=== PATIENT | male | born 1970 | race Caucasian/White ===

== ENCOUNTER 2017-05-14 10:08 | Outpatient (CLI) | payer OTHER ==
[2017-05-14 14:30] LABS: BASOPHILS # (AUTO) 0.1 10^3/uL (0.0-0.1); BASOPHILS % (AUTO) 0.9 %; EOSINOPHILS # (AUTO) 0.3 10^3/uL (0.0-0.7); HCT - HEMATOCRIT 44.1 % (42.0-52.0); HGB - HEMOGLOBIN 15.1 g/dL (14.0-18.0); LYMPHOCYTES # (AUTO) 1.6 10^3/uL (1.5-3.5); LYMPHOCYTES % (AUTO) 28.8 %; MEAN CORPUSCULAR HEMOGLOBIN 30.5 pg (27.0-31.0); MEAN CORPUSCULAR HGB CONC 34.2 g/dL (32.0-36.0); MONOCYTES # (AUTO) 0.5 10^3/uL (0.0-1.0); MONOCYTES % (AUTO) 8.3 %; NEUTROPHILS # (AUTO) 3.2 10^3/uL (1.5-6.6); RED BLOOD COUNT 4.96 10^6/uL (4.70-6.10); RED CELL DISTRIBUTION WIDTH 13.6 % (12.0-15.0); UNCORRECTED WHITE BLOOD COUNT 5.7 x10^3/uL; WHITE BLOOD COUNT 5.7 x10^3/uL (4.8-10.8)
[2017-05-14 15:10] LABS: ALBUMIN/GLOBULIN RATIO 1.5 (1.0-2.2); BILIRUBIN,TOTAL 0.3 mg/dL (0.2-1.0); BUN - BLOOD UREA NITROGEN 15 mg/dL (6-20); CALCIUM 9.4 mg/dL (8.5-10.3); CARBON DIOXIDE - CO2 26 mmol/L (21-32); CHLORIDE 107 mmol/L (101-111); CHOL/HDL RATIO 5.7 (<5.0); CHOLESTEROL 200 mg/dL; CREATININE 0.9 mg/dL (0.6-1.2); GFR - MDRD 90 (>89); GLUCOSE 102 mg/dL (70-100); HDL CHOLESTEROL 35 mg/dL; LDL/HDL RATIO 3.6 (<3.6); POTASSIUM 4.1 mmol/L (3.5-5.0); SODIUM 140 mmol/L (135-145); TOTAL PROTEIN 6.8 g/dL (6.7-8.2); TRIGLYCERIDES 196 mg/dL; VLDL CHOLESTEROL 39 mg/dL
== END 2017-05-14 10:09 | disposition home or self-care (01) ==
LOC: LAB.N 10:08
PROVIDERS: ATTEND Nurse Practitioner Gerontology
DX: Z13.9 Encounter for screening, unspecified (principal)
CPT/HCPCS: 36415; 80053; 80061; 85025

== ENCOUNTER 2017-06-07 20:14 | Emergency (ER) | payer OTHER ==
[2017-06-07] MEDS ORDERED: ALBUTEROL NEB 2.5 MG/3 ML INH STA (21:19)
[2017-06-07] MEDS ORDERED: predniSONE 20 MG TABLET PO STA (21:20)
[2017-06-07] MEDS ORDERED: predniSONE 20 MG TABLET ONE (21:24)
--- NOTE | 2017-06-07 21:27 | ED Physician Documentation ---
PD HPI CHEST PAIN - Stated complaint Stated Complaint: SOA/COUGH - Chief complaint Chief Complaint: Resp - History obtained from History obtained from: Patient - Additional information Additional information: Patient is a 47-year-old male who is otherwise healthy. He does have a history of asthma as a child. He is a smoker and does have a daughter who also has asthma. He presents with a complaint of difficulty in breathing for 1 day. He has had a dry nonproductive cough and wheezing. He presents tonight with these complaints and has had difficulty sleeping because of the dry cough and shortness of breath. He does not have any chest pain or chest pressure there is no edema in lower extremities. He does not have any history of venous thromboembolism. Review of systems: For pertinent positive and negatives in the review of systems please see history of present illness. Otherwise all other systems have been reviewed and are negative. Dragon disclaimer: Parts of this medical record were created using voice recognition technology. Because of the inherent limitations of this system occasional same sounding word substitutions do occur and persist despite proofreading. Please read the document for context. Review of Systems Ten Systems: 10 systems reviewed and negative Constitutional: denies: Fever Cardiac: denies: Chest pain / pressure, Palpitations, Pedal edema, Calf pain Respiratory: reports: Dyspnea, Cough, Wheezing GI: denies: Abdominal Pain, Abdominal Swelling, Nausea, Vomiting PD PAST MEDICAL HISTORY - Past Medical History Past Medical History: Yes Respiratory: Sleep apnea - Past Surgical History Past Surgical History: Yes General: Other - Present Medications Home Medications: Ambulatory Orders Medication Instructions Recorded Confirmed Cetirizine [ZyrTEC] 10 mg PO DAILY 06/07/17 06/07/17 Prednisone 40 mg PO DAILY #8 tablet 06/07/17 - Allergies Allergies/Adverse Reactions: Allergies Allergy/AdvReac Type Severity Reaction Status Date / Time No Known Drug Allergies Allergy Verified 06/07/17 20:32 - Social History Does the pt smoke?: Yes Smoking Status: Current every day smoker Does the pt drink ETOH?: No Does the pt have substance abuse?: No PD ED PE NORMAL - General General: Alert and oriented X 3, No acute distress, Well developed/nourished - HEENT HEENT: Atraumatic, PERRL - Cardiac Cardiac: RRR, No murmur, No gallop - Respiratory Respiratory: Other (No respiratory distress but moderate wheezing, prolonged expiratory phase) - Abdomen Abdomen: Normal bowel sounds - Derm Derm: Normal color, Warm and dry - Extremities Extremities: No deformity, No tenderness to palpate - Psych Psych: Normal mood, Normal affect Results - Vitals Vitals: Vital Signs - 24 hr 06/07/17 06/07/17 06/07/17 20:18 20:49 21:35 Temperature 36.3 C L Heart Rate 79 88 88 Respiratory 16 18 18 Rate Blood Pressure 131/77 H 130/90 H O2 Saturation 95 95 Oxygen O2 Source Room air PD MEDICAL DECISION MAKING - ED course ED course: This patinet is a pleasant well-appearing 47-year-old male who does have a history of asthma as a child and currently smokes. He comes in a cold symptoms and is found to have moderate wheezing here. Is given albuterol neb here and currently looks and feels better he is also given oral prednisone there is no fever or productive cough and antibiotics are not recommended for what appears to be asthmatic bronchitis. Disposition: To home Clinical impression: 1. Acute asthmatic bronchitis Departure - Departure Disposition: 01 Home, Self Care Clinical Impression: Bronchospasm with bronchitis, acute Condition: Good Instructions: ED Bronchitis Asthmatic Follow-Up: iVta Archer ARNP [Primary Care Provider] - Prescriptions: Prednisone 40 mg PO DAILY #8 tablet
[2017-06-07] MEDS ORDERED: ALBUTEROL NEB 2.5 MG/3 ML INH ONE (21:34)
[2017-06-07 22:53] VITALS: BP 128/91
== END 2017-06-07 22:51 | disposition home or self-care (01) ==
LOC: ED 20:14
DX: J20.9 Acute bronchitis, unspecified (principal); G47.30 Sleep apnea, unspecified; F17.200 Nicotine dependence, unspecified, uncomplicated
CPT/HCPCS: 94640; 99283; J7512; J7613

== ENCOUNTER 2018-01-30 13:00 | Outpatient (CLI) | payer OTHER | END 2018-01-30 13:15 | disposition home or self-care (01) | LOC: RT.N 13:00 | PROVIDERS: ATTEND Nurse Practitioner | DX: R06.02 Shortness of breath (principal) | CPT/HCPCS: 93005 ==

== ENCOUNTER 2018-01-30 14:18 | Outpatient (CLI) | payer OTHER ==
--- NOTE | 2018-01-31 08:52 | XRAY Report ---
TWO VIEW CHEST X-RAY: 01/30/2018 CLINICAL INDICATION: Shortness of breath. FINDINGS: Frontal and lateral views of the chest demonstrate a normal cardiac silhouette. The lungs are clear. No effusion or pneumothorax is present. IMPRESSION: NORMAL CHEST. TD: 01/31/2018 08:51
== END 2018-01-30 14:19 | disposition home or self-care (01) ==
LOC: DI.N 14:18
PROVIDERS: ATTEND Nurse Practitioner
DX: R07.9 Chest pain, unspecified (principal); R06.02 Shortness of breath
CPT/HCPCS: 36415; 71046; 80053; 83880; 85025; 85379; 85651; 86140

== ENCOUNTER 2018-01-30 20:17 | Outpatient (CLI) | payer OTHER ==
[2018-01-30 19:01] LABS: BASOPHILS # (AUTO) 0.1 10^3/uL (0.0-0.1); EOSINOPHILS # (AUTO) 0.5 10^3/uL (0.0-0.7); EOSINOPHILS % (AUTO) 8.9 %; HGB - HEMOGLOBIN 15.8 g/dL (14.0-18.0); LYMPHOCYTES # (AUTO) 2.2 10^3/uL (1.5-3.5); MEAN CORPUSCULAR HEMOGLOBIN 29.4 pg (27.0-31.0); MEAN CORPUSCULAR VOLUME 89.1 fL (80.0-94.0); MEAN PLATELET VOLUME 7.7 fL (7.4-11.4); MONOCYTES # (AUTO) 0.5 10^3/uL (0.0-1.0); MONOCYTES % (AUTO) 7.5 %; NEUTROPHILS # (AUTO) 2.9 10^3/uL (1.5-6.6); NEUTROPHILS % (AUTO) 46.6 %; PLT - PLATELET COUNT 276 10^3/uL (130-450); RED BLOOD COUNT 5.38 10^6/uL (4.70-6.10); RED CELL DISTRIBUTION WIDTH 13.7 % (12.0-15.0); WHITE BLOOD COUNT 6.2 x10^3/uL (4.8-10.8)
[2018-01-30 19:05] LABS: ALBUMIN 4.8 g/dL (3.2-5.5); ALKALINE PHOSPHATASE 52 IU/L (42-121); ALT ALANINE AMINOTRANSFERASE 22 IU/L (10-60); AST ASPARTATE AMINOTRANSFERASE 20 IU/L (10-42); BILIRUBIN,TOTAL 0.3 mg/dL (0.2-1.0); BUN - BLOOD UREA NITROGEN 17 mg/dL (6-20); CALCIUM 9.6 mg/dL (8.5-10.3); CARBON DIOXIDE - CO2 26 mmol/L (21-32); CHLORIDE 105 mmol/L (101-111); CRP - C-REACTIVE PROTEIN < 1.0 mg/dL (0-1.0); GFR - MDRD 79 (>89); GLUCOSE 98 mg/dL (70-100); SODIUM 139 mmol/L (135-145); TOTAL PROTEIN 7.2 g/dL (6.7-8.2)
== END 2018-01-30 20:18 | disposition home or self-care (01) ==
LOC: LAB.N 20:17
PROVIDERS: ATTEND Nurse Practitioner
DX: R07.9 Chest pain, unspecified (principal); R06.02 Shortness of breath
CPT/HCPCS: 36415; 80053; 83880; 85025; 85379; 85651; 86140

== ENCOUNTER 2018-03-13 13:10 | Outpatient (CLI) | payer OTHER ==
[2018-03-13] MEDS ORDERED: ALBUTEROL NEB 2.5 MG/3 ML INH ONE ×2 (15:26)
== END 2018-03-13 13:11 | disposition home or self-care (01) ==
LOC: RT 13:10
PROVIDERS: ATTEND Nurse Practitioner Gerontology
DX: R05 Cough (principal); R06.02 Shortness of breath
CPT/HCPCS: 94060; 94664; 94729

== ENCOUNTER 2018-06-03 14:44 | Outpatient (CLI) | payer OTHER | END 2018-06-03 14:45 | disposition home or self-care (01) | LOC: SC 14:44 | PROVIDERS: ATTEND Internal Medicine Pulmonary Disease | DX: G47.33 Obstructive sleep apnea (adult) (pediatric) (principal); E66.9 Obesity, unspecified; Z68.31 Body mass index [BMI] 31.0-31.9, adult | CPT/HCPCS: 99203; 99212 ==

== ENCOUNTER 2018-07-12 19:33 | Outpatient (CLI) | payer OTHER | END 2018-07-12 19:34 | disposition home or self-care (01) | LOC: SC 19:33 | PROVIDERS: ATTEND Internal Medicine Pulmonary Disease | DX: G47.33 Obstructive sleep apnea (adult) (pediatric) (principal); G47.61 Periodic limb movement disorder | CPT/HCPCS: 95810 ==

== ENCOUNTER 2018-08-01 15:14 | Outpatient (CLI) | payer OTHER | END 2018-08-01 15:15 | disposition home or self-care (01) | LOC: SC 15:14 | PROVIDERS: ATTEND Internal Medicine Pulmonary Disease | DX: G47.33 Obstructive sleep apnea (adult) (pediatric) (principal) | CPT/HCPCS: 99212; 99213 ==

== ENCOUNTER 2018-09-07 20:41 | Outpatient (CLI) | payer OTHER | END 2018-09-07 20:42 | disposition home or self-care (01) | LOC: SC 20:41 | PROVIDERS: ATTEND Internal Medicine Pulmonary Disease | DX: G47.33 Obstructive sleep apnea (adult) (pediatric) (principal); G47.61 Periodic limb movement disorder; R09.02 Hypoxemia | CPT/HCPCS: 95811 ==

== ENCOUNTER 2018-10-09 14:41 | Outpatient (CLI) | payer OTHER | END 2018-10-09 14:42 | disposition home or self-care (01) | LOC: SC 14:41 | PROVIDERS: ATTEND Nurse Practitioner Family | DX: G47.33 Obstructive sleep apnea (adult) (pediatric) (principal); R09.02 Hypoxemia | CPT/HCPCS: 99212; 99214 ==

== ENCOUNTER 2018-11-11 15:49 | Outpatient (CLI) | payer OTHER | END 2018-11-11 15:50 | disposition home or self-care (01) | LOC: SC 15:49 | PROVIDERS: ATTEND Nurse Practitioner Family | DX: G47.33 Obstructive sleep apnea (adult) (pediatric) (principal); R09.02 Hypoxemia | CPT/HCPCS: 99212; 99215 ==

== ENCOUNTER 2019-04-22 11:28 | Outpatient (CLI) | payer OTHER ==
--- NOTE | 2019-04-22 15:08 | XRAY Report ---
Reason: ASTHMA Procedure Date: 04/22/2019 Accession Number: [id number] / [id number] Procedure: XRN - Chest 2 View X-Ray CPT Code: 32704 FULL RESULT: EXAM: CHEST RADIOGRAPHY VIEWS EXAM DATE: 04/22/2019. CLINICAL HISTORY: Asthma. Chronic cough. COMPARISON: PA and lateral chest on 01/30/2018. TECHNIQUE: PA and lateral views. FINDINGS: Lungs/Pleura: Normal vasculature. Ill-defined 9 x 6 mm opacity projected between the anterior left second and third ribs, not visible on the prior examination. The lungs are otherwise clear. No pleural fluid or pneumothorax. Mediastinum: Mild cardiac and mediastinal contours. Lungs: Normal. IMPRESSION: Ill-defined 9 x 6 mm nodular opacity of the left upper chest is not visible on the prior examination. This may be a small focus of atelectasis or inflammation, or could be a new pulmonary nodule. Recommend follow-up chest radiography in 2-3 weeks for reevaluation. Otherwise normal examination. RADIA
== END 2019-04-22 11:29 | disposition home or self-care (01) ==
LOC: DI.N 11:28
PROVIDERS: ATTEND Physician Assistant Medical
DX: R91.8 Other nonspecific abnormal finding of lung field (principal)
CPT/HCPCS: 71046

== ENCOUNTER 2019-05-12 15:35 | Outpatient (CLI) | payer OTHER ==
--- NOTE | 2019-05-12 18:51 | XRAY Report ---
Reason: productive cough;abnormal CXR Procedure Date: 05/12/2019 Accession Number: [id number] / [id number] Procedure: XRN - Chest 2 View X-Ray CPT Code: 17480 FULL RESULT: EXAM: CHEST RADIOGRAPHY EXAM DATE: 05/12/2019 03:49 PM. CLINICAL HISTORY: Productive cough; abnormal CXR. COMPARISON: CHEST 2 VIEW 04/22/2019 12:04 PM. TECHNIQUE: 2 views. FINDINGS: Lungs/Pleura: Lung volumes are within normal limits although slightly decreased from before. There is minimal right basilar bronchovascular crowding. There is no confluent consolidation. There are no distinct nodules. The subtle opacity noted previously between the anterior left second and third rib now appears curvilinear and suggesting normal bronchovascular markings and overlying rib shadows. Mediastinum: Heart and mediastinal contours are unremarkable. Other: None. IMPRESSION: Normal 2-view chest radiography. No convincing left upper lobe nodule. RADIA
== END 2019-05-12 15:36 | disposition home or self-care (01) ==
LOC: DI.N 15:35
PROVIDERS: ATTEND Nurse Practitioner Gerontology
DX: R91.8 Other nonspecific abnormal finding of lung field (principal); R05 Cough; J45.901 Unspecified asthma with (acute) exacerbation
CPT/HCPCS: 71046

== ENCOUNTER 2020-02-09 17:47 | Outpatient (CLI) | payer OTHER | END 2020-02-09 17:48 | disposition home or self-care (01) | LOC: COV 17:47 | PROVIDERS: ATTEND Family Medicine | DX: R05 Cough (principal); R50.9 Fever, unspecified | CPT/HCPCS: 81599 ==

== ENCOUNTER 2020-02-13 19:28 | Outpatient (CLI) | payer OTHER | END 2020-02-13 19:29 | disposition critical access hospital (66) | LOC: EMS 19:28 | PROVIDERS: ATTEND Surgery | DX: R06.02 Shortness of breath (principal); R50.9 Fever, unspecified | CPT/HCPCS: A0425; A0427 ==

== ENCOUNTER 2020-02-13 19:43 | Inpatient (IN) | payer OTHER ==
--- NOTE | 2020-02-13 20:04 | ED Physician Documentation ---
History of Present Illness - Stated complaint Stated Complaint: SOA, FEVER X 5 DAYS - Chief complaint Chief Complaint: Resp - History obtained from History obtained from: Patient (the patient is a 49 y/o former smoker with a history of reactive airway disease with a 1 week history of fever and cough. called 911 tonight for dyspnea, was given albuterol and IV solumedrol prior to arrival. he was tested for covid [place] the [facility] [place] [facility] earlier this week but the results are not available. 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.) Review of Systems Constitutional: reports: Fever Eyes: reports: Reviewed and negative Ears: reports: Reviewed and negative Nose: reports: Reviewed and negative Throat: reports: Reviewed and negative Cardiac: reports: Reviewed and negative Respiratory: reports: Dyspnea, Cough, Wheezing GI: reports: Reviewed and negative : reports: Reviewed and negative Skin: reports: Reviewed and negative Musculoskeletal: reports: Reviewed and negative Neurologic: reports: Reviewed and negative Psychiatric: reports: Reviewed and negative Endocrine: reports: Reviewed and negative Immunocompromised: reports: Reviewed and negative PD PAST MEDICAL HISTORY - Past Medical History Respiratory: Sleep apnea - Past Surgical History Past Surgical History: Yes General: Other - Present Medications Home Medications: Ambulatory Orders Medication Instructions Recorded Confirmed Cetirizine [ZyrTEC] 10 mg PO DAILY 06/07/17 06/07/17 predniSONE [Prednisone] 40 mg PO DAILY #8 tablet 06/07/17 - Allergies Allergies/Adverse Reactions: Allergies Allergy/AdvReac Type Severity Reaction Status Date / Time No Known Drug Allergies Allergy Verified 02/13/20 19:57 - Social History Does the pt smoke?: Yes Smoking Status: Current every day smoker Does the pt drink ETOH?: No Does the pt have substance abuse?: No PD ED PE NORMAL - Vitals Vital signs reviewed: Yes - General General: Alert and oriented X 3, Well developed/nourished, Other (in mild resp distress) - HEENT HEENT: Atraumatic, PERRL, Moist mucous membranes, Pharynx benign, Dentition b enign, Other - Neck Neck: Supple, no meningeal sign, No JVD, No bruit, Other (trachea midline) - Cardiac Cardiac: No murmur, Other (tachycardic and regular rhythm) - Respiratory Respiratory: Other (moderate respiratory distress, diffuse wheezing throughout all lung rossi, use of accessory muscle use throughout to include infraclavicular, supraclavicular, intercostal retractions, sob, can speak a few words and then tires out. sounds present in b/l lung rossi.) - Abdomen Abdomen: Normal bowel sounds, Soft, Non tender, Non distended, No organomegaly - Back Back: No CVA TTP, No spinal TTP - Derm Derm: Normal color, Warm and dry, No rash - Extremities Extremities: No deformity, No tenderness to palpate, Normal ROM s pain, No calf tenderness / cord - Neuro Neuro: Alert and oriented X 3, striker out 2-12 intact, No motor deficit, No sensory deficit, Normal speech - Psych Psych: Normal mood, Normal affect Results - Vitals Vitals: Vital Signs - 24 hr 02/13/20 02/13/20 02/13/20 19:54 19:57 20:08 Temperature 37.5 C Heart Rate 130 H 129 H 128 H Respiratory 20 26 H 18 Rate Blood Pressure 141/90 H 127/79 127/79 O2 Saturation 87 L 92 93 02/13/20 20:54 Temperature Heart Rate 109 H Respiratory 16 Rate Blood Pressure 102/66 O2 Saturation 96 Oxygen O2 Source Nasal cannula Oxygen Flow Rate 6 - EKG (time done) 20:13 Rate: Other (no stemi, sinus tach) - Labs Labs: Laboratory Tests 02/13/20 02/13/20 02/13/20 20:11 20:22 20:22 WBC 10.9 H RBC 4.95 Hgb 14.9 Hct 44.6 MCV 90.1 MCH 30.1 MCHC 33.4 RDW 13.2 Plt Count 258 MPV 8.7 Neut # (Auto) 8.7 H Lymph # (Auto) 0.8 L [place] # (Auto) 0.8 Eos # (Auto) 0.5 Baso # (Auto) 0.1 Absolute Nucleated RBC 0.00 Nucleated RBC % 0.0 PT 14.4 H INR 1.3 H APTT 27.1 Sodium Potassium Chloride Carbon Dioxide Anion Gap BUN Creatinine Estimated GFR (MDRD) Glucose Lactic Acid Calcium Magnesium Total Bilirubin AST ALT Alkaline Phosphatase Total Creatine Kinase Troponin I High Sens B-Natriuretic Peptide Total Protein Albumin Globulin Albumin/Globulin Ratio Lipase Ethyl Alcohol Influenza A (Rapid) Negative Influenza B (Rapid) Negative 02/13/20 02/13/20 02/13/20 20:22 20:22 20:22 WBC RBC Hgb Hct MCV MCH MCHC RDW Plt Count MPV Neut # (Auto) Lymph # (Auto) [place] # (Auto) Eos # (Auto) Baso # (Auto) Absolute Nucleated RBC Nucleated RBC % PT INR APTT Sodium 135 Potassium 4.1 Chloride 101 Carbon Dioxide 23 Anion Gap 11.0 BUN 15 Creatinine 1.0 Estimated GFR (MDRD) 79 L Glucose 142 H Lactic Acid Calcium 9.1 Magnesium 1.9 Total Bilirubin 0.6 AST 14 ALT 13 Alkaline Phosphatase 65 Total Creatine Kinase 99 Troponin I High Sens 64.7 H* B-Natriuretic Peptide 11 Total Protein 7.3 Albumin 3.9 Globulin 3.4 Albumin/Globulin Ratio 1.1 Lipase 26 Ethyl Alcohol < 5.0 Influenza A (Rapid) Influenza B (Rapid) 02/13/20 20:26 WBC RBC Hgb Hct MCV MCH MCHC RDW Plt Count MPV Neut # (Auto) Lymph # (Auto) [place] # (Auto) Eos # (Auto) Baso # (Auto) Absolute Nucleated RBC Nucleated RBC % PT INR APTT Sodium Potassium Chloride Carbon Dioxide Anion Gap BUN Creatinine Estimated GFR (MDRD) Glucose Lactic Acid 1.0 Calcium Magnesium Total Bilirubin AST ALT Alkaline Phosphatase Total Creatine Kinase Troponin I High Sens B-Natriuretic Peptide Total Protein Albumin Globulin Albumin/Globulin Ratio Lipase Ethyl Alcohol Influenza A (Rapid) Influenza B (Rapid) PD MEDICAL DECISION MAKING - ED course Complexity details: considered differential (copd exacerbation, pna, ards), other - Consults Consults: Consulted (name) (dr. little), Discussed case with (dr. little), Request systems development consultant evaluate patient, Request systems development consultant admit patient (21:28 gerber l admit patient) - Critical Care Time(min): 30 Time Includes: Direct patient care, Review records, Reassess patient, Document care, Coordinate care, Medical consult Data interpretation: Labs, Pulse ox, CXR Procedures included in critical care time: Peripheral IV Procedures excluded from critical care time: EKG Departure - Departure Disposition: 66 [facility] DC/Xfer Clinical Impression: COPD exacerbation Condition: Stable
[2020-02-13] MEDS ORDERED: cefTRIAXone 1 GM in SODIUM CHLORIDE 0.9% MINIBAG 100 ML IV STA (20:07)
[2020-02-13] MEDS ORDERED: IPRATROPIUM/ALBUTEROL 3 ML NEB INH STA ×3 (20:07→20:45)
[2020-02-13] MEDS ORDERED: SODIUM CHLORIDE 0.9% 1,000 ML IV ONE (20:07)
[2020-02-13] MEDS ORDERED: MAGNESIUM SULFATE 2 GRAM 2 GM/50 ML BAG IV ONE (20:08)
[2020-02-13] MEDS ORDERED: AZITHROMYCIN INJ 500 MG in SODIUM CHLORIDE 0.9% 250 ML IV STA (20:09)
[2020-02-13 20:32] LABS: BASOPHILS # (AUTO) 0.1 10^3/uL (0.0-0.1); BASOPHILS % (AUTO) 0.6 %; EOSINOPHILS # (AUTO) 0.5 10^3/uL (0.0-0.7); EOSINOPHILS % (AUTO) 4.8 %; HGB - HEMOGLOBIN 14.9 g/dL (14.0-18.0); LYMPHOCYTES # (AUTO) 0.8 10^3/uL (1.5-3.5); LYMPHOCYTES % (AUTO) 7.1 %; MEAN CORPUSCULAR HEMOGLOBIN 30.1 pg (27.0-31.0); MEAN CORPUSCULAR HGB CONC 33.4 g/dL (32.0-36.0); MEAN CORPUSCULAR VOLUME 90.1 fL (80.0-94.0); MEAN PLATELET VOLUME 8.7 fL (7.4-11.4); MONOCYTES # (AUTO) 0.8 10^3/uL (0.0-1.0); NEUTROPHILS # (AUTO) 8.7 10^3/uL (1.5-6.6); PLT - PLATELET COUNT 258 10^3/uL (130-450); RED BLOOD COUNT 4.95 10^6/uL (4.70-6.10); RED CELL DISTRIBUTION WIDTH 13.2 % (12.0-15.0); WHITE BLOOD COUNT 10.9 x10^3/uL (4.8-10.8)
[2020-02-13 20:38] LABS: INR 1.3 (0.8-1.2); PT - PROTHROMBIN TIME 14.4 secs (9.9-12.6)
[2020-02-13 20:45] LABS: ALBUMIN 3.9 g/dL (3.2-5.5); ALBUMIN/GLOBULIN RATIO 1.1 (1.0-2.2); ALKALINE PHOSPHATASE 65 IU/L (42-121); ALT ALANINE AMINOTRANSFERASE 13 IU/L (10-60); AST ASPARTATE AMINOTRANSFERASE 14 IU/L (10-42); BILIRUBIN,TOTAL 0.6 mg/dL (0.2-1.0); BUN - BLOOD UREA NITROGEN 15 mg/dL (6-20); CALCIUM 9.1 mg/dL (8.5-10.3); CARBON DIOXIDE - CO2 23 mmol/L (21-32); CHLORIDE 101 mmol/L (101-111); CK- CREATINE KINASE 99 IU/L (22-269); GFR - MDRD 79 (>89); GLUCOSE 142 mg/dL (70-100); LIPASE 26 U/L (22-51); MAGNESIUM 1.9 mg/dL (1.7-2.8); SODIUM 135 mmol/L (135-145); TOTAL PROTEIN 7.3 g/dL (6.7-8.2)
[2020-02-13 20:47] LABS: PARTIAL THROMBOPLASTIN TIME 27.1 secs (24.9-33.3)
--- NOTE | 2020-02-13 20:58 | XRAY Report ---
Reason: sob Procedure Date: 02/13/2020 Accession Number: [id number] / [id number] Procedure: XR - Chest 1 View X-Ray CPT Code: 71761 Final Report FULL RESULT: EXAM: CHEST RADIOGRAPHY EXAM DATE: 02/13/2020 08:35 PM. CLINICAL HISTORY: Shortness of breath. COMPARISON: CHEST 2 VIEW 05/12/2019 3:55 PM. TECHNIQUE: 1 view. FINDINGS: Lungs/Pleura: No consolidation, airspace disease, pleural effusion or pneumothorax. Mediastinum: Within exam limitations, the cardiomediastinal contour is normal. IMPRESSION: No acute cardiopulmonary disease seen. RADIA
[2020-02-13] MEDS ORDERED: SODIUM CHLORIDE FLUSH 0.9% 10 ML SYRINGE IVP PRN (21:29)
[2020-02-13] MEDS ORDERED: ONDANSETRON 4 MG/2 ML VIAL IVP PRN (21:29)
[2020-02-13] MEDS ORDERED: ALBUTEROL NEB 2.5 MG/3 ML INH PRN (21:32)
--- NOTE | 2020-02-13 21:35 | HISTORY & PHYSICAL EXAMINATION ---
Chief Complaint - Chief Complaint Chief Complaint: Shortness of breath History of Present Illness - Admitted From Admitted From:: Home - History Obtained From Records Reviewed: Yes History obtained from: Patient, ER Physician, EMR - History of Present Illness HPI Comment/Other: This is a 49-year-old male with a past medical history significant for asthma, obstructive sleep apnea on CPAP, allergic rhinitis, prior history of tobacco use who presents today complaining of shortness of breath. He states that he has been having fevers for the past 5 days and occasional shortness of breath. He states that today he noted he became severely dyspneic and he used his home albuterol without much improvement in his symptoms. He states it was relatively sudden in onset. He had some mild wheezing. He states his temperature at home has been up to 100.6 F over the past few days. He reports that he was tested for COVID-19 this past Sunday. He reports no recent travel. 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 He denies any chest pain. He reports a slight productive cough. He does have a headache, sore throat, nasal congestion and runny nose. He reports no blurry vision and denies nausea or vomiting. He also reports no abdominal pain or diarrhea. He states he has never been hospitalized before and normally feels so short of breath, he sees his primary care physician and he improves with oral steroids. He states he normally uses his albuterol inhaler at most once a week. He does take his Advair on a daily basis. He is also compliant with CPAP for his obstructive sleep apnea. He states he never officially been told he has COPD and that he was diagnosed with asthma since his younger years. He no longer smokes after quitting about 5 years ago previously he stated he was smoking a pack a day on and off since his teens. He denies any prior history of DVT or PE. Reports no leg swelling or pain. Denies a family history of thromboembolisms. He states he currently feels better after receiving IV Solu- Medrol and DuoNeb treatments in the emergency department. In the emergency department, he was found to be afebrile with temperature of 37.5 C. He was tachycardic with a heart rate of 130. Blood pressure is elevated at 141/90. He was tachypneic in the low 20s and was saturating 87% on room air. This improved to 92% on 6 L of oxygen via nasal cannula. Labs revealed a white count of 10.9 with a left shift and decreased lymphocytes. His troponin was also elevated at 64.7. His BNP was normal. Influenza was negative. His chest x-ray was unremarkable. His EKG showed sinus tachycardia without any signs of ischemia. He was given ceftriaxone IV and azithromycin IV in the emergency department. He had received 125 mg of Solumedrol IV prior to his arrival to emergency department. He also received 3 DuoNeb treatments. Given his hypoxia and persistent dyspnea, medicine was consulted for admission. History - Past Medical History Respiratory: reports: Asthma, Sleep apnea, CPAP use MRSA Hx?: No - Past Surgical History General: reports: Other (Bilaterla inguinal hernia repair) - Family & Social History Family History Comment/Other: Reports no family history to his knowledge. Living arrangement: At home Living Situation: With spouse/s.o. Social History Notes: [place] the [place] at the [employer]. He quit smoking about 5 years ago but previously smoked a pack a year on and off since his teens. He denies any alcohol use. - Substance History Use: Uses substance without health or social issues: NONE Meds/Allgy - Home Medications Home Medications: Ambulatory Orders Medication Instructions Recorded Confirmed Cetirizine [ZyrTEC] 10 mg PO DAILY 06/07/17 06/07/17 predniSONE [Prednisone] 40 mg PO DAILY #8 tablet 06/07/17 - Allergies Allergies/Adverse Reactions: Allergies Allergy/AdvReac Type Severity Reaction Status Date / Time No Known Drug Allergies Allergy Verified 02/13/20 19:57 Review of Systems - Constitutional Constitutional: reports: Fever. denies: Chills, Poor appetite - Eyes Eyes: denies: Blurred vision - Ears, Nose & Throat Ears, Nose & Throat: reports: Nasal congestion, Sore throat - Cardiovascular Cariovascular: reports: Exertional dyspnea. denies: Chest pain, Edema - Respiratory Respiratory: reports: Cough, Sputum production, Wheezing, SOB at rest, SOB with exertion - Gastrointestinal Gastrointestinal: denies: Abdominal pain, Diarrhea, Nausea, Vomiting - Genitourinary Genitourinary: denies: Dysuria, Frequency, Hematuria - Musculoskeletal Musculoskeletal: denies: Muscle pain - Integumentary Integumentary: denies: Rash - Neurological Neurological: reports: Headache. denies: General weakness, Focal weakness, Numbness - Endocrine Endocrine: denies: Polyuria, Polydypsia - All Other Systems All Other Systems: reports: Reviewed and negative Prior Level of Functionality: He is independent with his ADLs. Exam - Vital Signs Reviewed Vital Signs: Yes Vital Signs: Vital Signs x48h Temp Pulse Resp BP Pulse Ox 02/13/20 20:54 109 H 16 102/66 96 02/13/20 20:08 128 H 18 127/79 93 02/13/20 19:57 129 H 26 H 127/79 92 02/13/20 19:54 37.5 C 130 H 20 141/90 H 87 L - Physical Exam General Appearance: positive: Alert, Mild distress Eyes Bilateral: positive: Normal inspection, Conjunctivae nml ENT: positive: ENT inspection nml Neck: positive: Nml inspection Respiratory: positive: Wheezes, Other (He is tachypneic with diminished breath sounds. There are faint expiratory and expiratory wheezes.). negative: Breath sounds nml Cardiovascular: positive: No murmur, Tachycardia. negative: Bradycardia, Systolic murmur, Diastolic murmur Abdomen: positive: Non-tender, No distention. negative: Tenderness, Guarding, Rebound Skin: positive: Color nml, Warm, Dry Extremities: positive: Full ROM, No pedal edema. negative: Calf tenderness, Issac's sign/cords Neurologic/Psychiatric: positive: Oriented x3, Motor nml. negative: Disoriented to person, Disoriented to place, Disoriented to time Conclusion/Plan - Problem List (1) Acute respiratory failure with hypoxia Conclusion/Plan: He is hypoxic requiring 6 L of oxygen via nasal cannula to maintain oxygen saturation greater than 92%. Suspect secondary to his asthma exacerbation. His BNP is normal and there is no pulmonary vascular congestion on imaging to suggest heart failure. He reports improvement after receiving steroids and multiple breathing treatments. Will will need to consider a pulmonary embolism if he remains hypoxic despite treatment for his asthma exacerbation. Right now, he does not have any risk factors and no signs of DVT on exam. We will treat him for his asthma exacerbation with IV Solu-Medrol 40 mg twice daily, IV antibiotics given his history of smoking and a possible component of COPD. Александрo nebs [id number]. We will continue supplemental oxygen for goal saturation greater than 92%. Once again, if his hypoxia does not improve, we will work him up for a pulmonary embolism. He has already been tested for COVID-19 on the 07 of February and his results are pending. Right now there is no obvious infiltrate to suggest a viral pneumonia although he is lymphopenic. We will keep him on droplet precautions until we have these results back. (2) Asthma exacerbation Conclusion/Plan: Suspect this is the etiology of his acute hypoxic respiratory failure. He is hypoxic requiring 6 L of oxygen. We will treat him with similar IV 40 mg twice daily as well as ceftriaxone azithromycin IV given the may be component of COPD due to his history of smoking. Duo nebs [id number] and albuterol as needed. Qualifiers: Asthma severity: mild Asthma persistence: intermittent Qualified Code(s): J45.21 - Mild intermittent asthma with (acute) exacerbation (3) Elevated troponin Conclusion/Plan: His troponin is elevated at 64.7 but he does not have any chest pain and his EKG does not show signs of ischemia. Suspect this is likely demand ischemia given his hypoxic respiratory failure and asthma exacerbation. We will continue to monitor him on telemetry and trend his troponin. There is concern for ischemia, will give him aspirin and anticoagulate him. Unfortunately we3 do not have echocardiogram available over the weekend and if there is truly concern for a NSTEMI, he would need to be transferred. (4) ARIANE on CPAP Conclusion/Plan: He is compliant with his CPAP on a daily basis. Unfortunately, his does not drive and will be unable to bring it to him while he is hospitalized. We will place him on our own CPAP machine. - Lab Results Lab results reviewed: Yes David Bones: 02/13/20 20:22 02/13/20 20:22 - Diagnostic Imaging Results Diagnostic Imaging Results: positive: Final report reviewed, Read independently Diagnostic Imaging Results Comments: His x-rays does not reveal any obvious infiltrate. - EKG Results EKG Interpreted Independently: Yes EKG Findings: His EKG shows sinus tachycardia without any ischemic changes. Core Measures - Anticipated LOS I expect patient to be DC'd or transferred within 96 hours.: Yes - Issues Hospital Issues and Management Plan: 18-year-old male with history of asthma presenting with worsening dyspnea. He admitted for acute hypoxic respiratory failure secondary to asthma/COPD exacerbation. Will rule out COVID-19. We will treat him with IV steroids, duo nebs, antibiotics. - DVT/VTE - Prophylaxis VTE/DVT Device ordered at admit?: Yes VTE/DVT Prophylaxis med ordered at admit?: Yes
[2020-02-13 23:06] LABS: MUDS CUTOFF CONCENTRATIONS CUTOFF CONC BELOW:
[2020-02-13 23:08] LABS: BILIRUBIN,URINE NEGATIVE (NEGATIVE); CLARITY,URINE CLEAR (CLEAR); GLUCOSE, URINE (UA) NEGATIVE (NEGATIVE); KETONES,URINE (UA) 40 mg/dL (NEGATIVE); LEUKOCYTE ESTERASE, URINE NEGATIVE (NEGATIVE); NITRITE,URINE NEGATIVE (NEGATIVE); OCCULT BLOOD,URINE NEGATIVE (NEGATIVE); PH,URINE 5.5 PH (5.0-7.5); PROTEIN,URINE 30 mg/dL (NEGATIVE); UROBILINOGEN,URINE 0.2 (NORMAL) E.U./dL (NORMAL)
[2020-02-13 23:16] LABS: BACTERIA,URINE Rare /HPF (None Seen); MUCUS,URINE Few Strands; RBC,URINE None Seen /HPF (0-5); SQUAMOUS EPITHELIAL CELL,UR NONE SEEN (<= Few)
[2020-02-13 23:18] LABS: AMPHETAMINE SCREEN,URINE NEGATIVE (NEGATIVE); BENZODIAZEPINES SCREEN, URINE NEGATIVE (NEGATIVE); COCAINE SCREEN URINE NEGATIVE (NEGATIVE); METHADONE SCREEN, URINE NEGATIVE (NEGATIVE); METHAMPHETAMINES SCREEN, URINE NEGATIVE (NEGATIVE); OPIATE SCREEN, URINE NEGATIVE (NEGATIVE); OXYCODONE SCREEN, URINE NEGATIVE (NEGATIVE); PROPOXYPHENE SCREEN, URINE NEGATIVE (NEGATIVE); TRICYCLIC ANTIDEPRESSANT,URINE NEGATIVE (NEGATIVE)
[2020-02-14] MEDS: IPRATROPIUM/ALBUTEROL 3 ML NEB INH SCH ×7 (00:05→19:36)
[2020-02-14] MEDS ORDERED: IOVERSOL 320 100 ML VIAL IVP ONE ×2 (00:16→04:13)
[2020-02-14] MEDS ORDERED: ALBUTEROL NEB 2.5 MG/3 ML INH PRN (00:56)
[2020-02-14] MEDS: SODIUM CHLORIDE FLUSH 0.9% 10 ML SYRINGE IVP SCH ×4 (02:13→23:52)
--- NOTE | 2020-02-14 02:34 | CT Report ---
Reason: Hypoxia. Tachycardia. Eval for PE. Procedure Date: 02/14/2020 Accession Number: [id number] / [id number] Procedure: CT - ANGIO CHEST W/WO CPT Code: Final Report FULL RESULT: EXAM: CT ANGIOGRAM CHEST EXAM DATE: 02/14/2020 02:09 AM. CLINICAL HISTORY: Hypoxia. Tachycardia. Eval for PE. COMPARISON: None. TECHNIQUE: Routine helical imaging was performed through the chest in the pulmonary arterial phase. IV Contrast: 80 mL Optiray 320. Reconstructions: Coronal 3-D MIP reconstructions. Sagittal and coronal. In accordance with CT protocol optimization, one or more of the following dose reduction techniques were utilized for this exam: automated exposure control, adjustment of mA and/or KV based on patient size, or use of iterative reconstructive technique. FINDINGS: Pulmonary Arteries: There is suboptimal opacification of the pulmonary arteries. No main or lobar pulmonary embolism. Segmental and subsegmental vessels are difficult to assess. Lungs and Pleura: There is small patchy consolidation within the left lower lobe. Multifocal scattered areas of centrilobular nodularity seen within the lungs bilaterally coupled with patchy areas of peribronchial consolidation within the lingula and right middle lobe. There are areas of bronchial and bronchiolar wall thickening as well as areas of bronchiolar plugging. There is mild bilateral apical paraseptal emphysema. Central Airways: Visualized central airways are without suspicious filling defects. Chest Wall: No significant abnormality. Thyroid: No significant abnormality. Mediastinum: Increased number of small as well as mild enlarged mediastinal and bilateral hilar lymph nodes, presumed reactive. Small hiatal hernia is noted. Heart: Normal in size. No significant pericardial effusion. Aorta: Normal caliber. Upper Abdomen: No significant abnormality. Bones: No suspicious bony lesions evident. IMPRESSION: 1. Suboptimal opacification makes it difficult to assess segmental and subsegmental vessels. No main or lobar embolism. 2. There is small consolidation within the left lower lobe, worrisome for pneumonia. Endobronchial spread to the right middle lobe, lingula, and right lower lobe noted. Bilateral lower lung bronchial and bronchiolar wall thickening, representing a component of concurrent infectious bronchitis. RADIA
[2020-02-14] MEDS: BUDESONIDE 0.5 MG/2 ML NEB INH SCH ×2 (06:16→19:37)
[2020-02-14 06:29] LABS: BASOPHILS % (AUTO) 0.2 %; LYMPHOCYTES # (AUTO) 0.5 10^3/uL (1.5-3.5); LYMPHOCYTES % (AUTO) 5.7 %; MEAN CORPUSCULAR HEMOGLOBIN 29.7 pg (27.0-31.0); MEAN CORPUSCULAR HGB CONC 33.1 g/dL (32.0-36.0); MEAN CORPUSCULAR VOLUME 89.6 fL (80.0-94.0); MEAN PLATELET VOLUME 8.7 fL (7.4-11.4); MONOCYTES # (AUTO) 0.2 10^3/uL (0.0-1.0); MONOCYTES % (AUTO) 2.3 %; NEUTROPHILS # (AUTO) 7.9 10^3/uL (1.5-6.6); NEUTROPHILS % (AUTO) 91.2 %; PLT - PLATELET COUNT 259 10^3/uL (130-450); RED BLOOD COUNT 4.72 10^6/uL (4.70-6.10); RED CELL DISTRIBUTION WIDTH 13.5 % (12.0-15.0); WHITE BLOOD COUNT 8.7 x10^3/uL (4.8-10.8)
[2020-02-14 06:43] LABS: CALCIUM 8.9 mg/dL (8.5-10.3); CREATININE 0.8 mg/dL (0.6-1.2); MAGNESIUM 2.3 mg/dL (1.7-2.8); PHOSPHORUS 3.6 mg/dL (2.5-4.6)
[2020-02-14] MEDS: ENOXAPARIN 40 MG/0.4 ML SYRINGE SUBQ SCH (10:05)
[2020-02-14] MEDS: cefTRIAXone 1 GM in SODIUM CHLORIDE 0.9% MINIBAG 100 ML IV SCH (10:06)
[2020-02-14] MEDS: methylPREDNISolone SUCCINATE 40 MG/ML VIAL IVP SCH ×2 (10:07→21:10)
[2020-02-14] MEDS: AZITHROMYCIN 250 MG TABLET PO SCH (10:07)
[2020-02-14] MEDS: ACETAMINOPHEN 325 MG TABLET PO PRN ×3 (10:47→21:10)
[2020-02-14] MEDS: BENZONATATE 100 MG CAPSULE PO PRN ×2 (10:47→17:16)
--- NOTE | 2020-02-14 11:43 | PHARMACY PROGRESS NOTE ---
- Best Possible Medication History Admit Date and Time: 02/13/202128 Processed by: Pharmacy Medication History completed: Yes Patient Interview: Pt unable to participate Secondary Source(s): Physician records, Pharmacy records, Insurance records As the person ultimately responsible for medication therapy, providers are able to order a medication from an existing home medication list in [facility] via the "Reconcile Routine" prior to Confirmation of that medication by it support technician. Such practice is discouraged except when the physician, in their clinical judgment, deems that a medical need exists for a medication without regard to previous use.
[2020-02-14] MEDS ORDERED: guaiFENesin/CODEINE 5 ML UDC PO PRN (16:17)
--- NOTE | 2020-02-14 16:20 | PROVIDER PROGRESS NOTE ---
Subjective - Prog Note Date Prog Note Date: 02/14/20 Prog Note Time: 16:16 - Subjective Subjective: Today, pt reports possible mild improvement. Still with persistent cough and SOB. Reports cough improved with PRN Tessalon Current Medications - Current Medications Current Medications: Acetaminophen (Tylenol) 650 mg PO Q4HR PRN PRN Reason: Pain 1 to 4 Last Admin: 02/14/20 10:47 Dose: 650 mg Albuterol () 2.5 mg INH Q2HR PRN PRN Reason: Wheezing Albuterol/Ipratropium (Duoneb) 3 ml INH Q4H [facility] Last Admin: 02/14/20 14:10 Dose: 3 ml Azithromycin (Zithromax) 250 mg PO DAILY [facility] Last Admin: 02/14/20 10:07 Dose: 250 mg Benzonatate (Tessalon) 100 mg PO TID PRN PRN Reason: Cough Last Admin: 02/14/20 10:47 Dose: 100 mg Budesonide (Pulmicort) 0.5 mg INH RTBID [facility] Last Admin: 02/14/20 06:16 Dose: 0.5 mg Enoxaparin Sodium (Lovenox) 40 mg SUBQ DAILY [facility] Last Admin: 02/14/20 10:05 Dose: 40 mg Ceftriaxone Sodium 1 gm/ (Sodium Chloride) 100 mls @ 200 mls/hr IV DAILY [facility] Last Infusion: 02/14/20 10:39 Dose: Infused Methylprednisolone (Solu-Medrol (40mg Vial)) 40 mg IVP BID [facility] Last Admin: 02/14/20 10:07 Dose: 40 mg Ondansetron HCl (Zofran Inj) 4 mg IVP Q6HR PRN PRN Reason: Nausea / Vomiting Sodium Chloride (Normal Saline Flush 0.9%) 10 ml IVP PRN PRN PRN Reason: NEEDED PER PROVIDER ORDERS Sodium Chloride (Normal Saline Flush 0.9%) 10 ml IVP 0100,0900,1700 [facility] Last Admin: 02/14/20 10:07 Dose: 10 ml Objective - Vital Signs/Intake & Output Reviewed Vital Signs: Yes Vital Signs: Vital Signs x48h Temp Pulse Pulse Resp BP Pulse Ox 02/14/20 14:11 94 20 02/14/20 13:12 36.6 C 92 22 122/76 94 02/14/20 10:15 74 20 03/21/20 09:01 36.4 C L 84 20 93 02/14/20 09:00 101 H 93 Intake & Output: Intake & Output 02/11/20 02/12/20 02/13/20 02/14/20 23:59 23:59 23:59 23:59 Intake Total 1450 920 Output Total 200 Balance 1250 920 - Objective General Appearance: positive: No acute distress Eyes Bilateral: positive: No scleral icterus Neck: positive: Nml inspection Respiratory: positive: Wheezes Cardiovascular: positive: Regular rate & rhythm Abdomen: positive: Non-tender, No organomegaly, No distention Skin: positive: No rash Extremities: positive: No pedal edema Neurologic/Psychiatric: positive: Oriented x3 - Lab Results Fish Bones: 02/14/20 06:13 02/14/20 06:13 Other Labs: Lab Results x24hrs 02/14/20 02/14/20 02/14/20 Range/Units 06:13 06:13 06:13 WBC 8.7 (4.8-10.8) x10^3/uL RBC 4.72 (4.70-6.10) 10^6/uL Hgb 14.0 (14.0-18.0) g/dL Hct 42.3 (42.0-52.0) % MCV 89.6 (80.0-94.0) fL MCH 29.7 (27.0-31.0) pg MCHC 33.1 (32.0-36.0) g/dL RDW 13.5 (12.0-15.0) % Plt Count 259 (130-450) 10^3/uL MPV 8.7 (7.4-11.4) fL Neut # (Auto) 7.9 H (1.5-6.6) 10^3/uL Lymph # (Auto) 0.5 L (1.5-3.5) 10^3/uL [place] # (Auto) 0.2 (0.0-1.0) 10^3/uL Eos # (Auto) 0.0 (0.0-0.7) 10^3/uL Baso # (Auto) 0.0 (0.0-0.1) 10^3/uL Absolute Nucleated RBC 0.00 x10^3/uL Nucleated RBC % 0.0 /100WBC PT (9.9-12.6) secs INR (0.8-1.2) APTT (24.9-33.3) secs Sodium 136 (135-145) mmol/L Potassium 4.3 (3.5-5.0) mmol/L Chloride 103 (101-111) mmol/L Carbon Dioxide 23 (21-32) mmol/L Anion Gap 10.0 (6-13) BUN 15 (6-20) mg/dL Creatinine 0.8 (0.6-1.2) mg/dL Estimated GFR (MDRD) 102 (>89) Glucose 178 H (70-100) mg/dL Lactic Acid (0.5-2.2) mmol/L Calcium 8.9 (8.5-10.3) mg/dL Phosphorus 3.6 (2.5-4.6) mg/dL Magnesium 2.3 (1.7-2.8) mg/dL Total Bilirubin (0.2-1.0) mg/dL AST (10-42) IU/L ALT (10-60) IU/L Alkaline Phosphatase (42-121) IU/L Total Creatine Kinase (22-269) IU/L Troponin I High Sens 181.0 H* (2.3-19.7) ng/L B-Natriuretic Peptide (5-100) pg/mL Total Protein (6.7-8.2) g/dL Albumin (3.2-5.5) g/dL Globulin (2.1-4.2) g/dL Albumin/Globulin Ratio (1.0-2.2) Lipase (22-51) U/L Urine Color Urine Clarity (CLEAR) Urine pH (5.0-7.5) PH Ur Specific [place] (1.002-1.030) Urine Protein (NEGATIVE) mg/dL Urine Glucose (UA) (NEGATIVE) mg/dL Urine Ketones (NEGATIVE) mg/dL Urine Occult Blood (NEGATIVE) Urine Nitrite (NEGATIVE) Urine Bilirubin (NEGATIVE) Urine Urobilinogen (NORMAL) E.U./dL Ur Leukocyte Esterase (NEGATIVE) Urine RBC (0-5) /HPF Urine WBC (0-3) /HPF Ur Squamous Epith Cells (<= Few) Urine Bacteria (None Seen) /HPF Urine Mucus Ur Microscopic Review Urine Culture Comments Urine Opiates Screen (NEGATIVE) Ur Oxycodone Screen (NEGATIVE) Urine Methadone Screen (NEGATIVE) Ur Propoxyphene Screen (NEGATIVE) Ur Barbiturates Screen (NEGATIVE) Ur Tricyclics Screen (NEGATIVE) Ur Phencyclidine Scrn (NEGATIVE) Ur Amphetamine Screen (NEGATIVE) U Methamphetamines Scrn (NEGATIVE) U Benzodiazepines Scrn (NEGATIVE) Urine Cocaine Screen (NEGATIVE) U Cannabinoids Screen (NEGATIVE) Ethyl Alcohol mg/dL Influenza A (Rapid) (Negative) Influenza B (Rapid) (Negative) 02/13/20 02/13/20 02/13/20 Range/Units 23:00 22:54 20:26 WBC (4.8-10.8) x10^3/uL RBC (4.70-6.10) 10^6/uL Hgb (14.0-18.0) g/dL Hct (42.0-52.0) % MCV (80.0-94.0) fL MCH (27.0-31.0) pg MCHC (32.0-36.0) g/dL RDW (12.0-15.0) % Plt Count (130-450) 10^3/uL MPV (7.4-11.4) fL Neut # (Auto) (1.5-6.6) 10^3/uL Lymph # (Auto) (1.5-3.5) 10^3/uL [place] # (Auto) (0.0-1.0) 10^3/uL Eos # (Auto) (0.0-0.7) 10^3/uL Baso # (Auto) (0.0-0.1) 10^3/uL Absolute Nucleated RBC x10^3/uL Nucleated RBC % /100WBC PT (9.9-12.6) secs INR (0.8-1.2) APTT (24.9-33.3) secs Sodium (135-145) mmol/L Potassium (3.5-5.0) mmol/L Chloride (101-111) mmol/L Carbon Dioxide (21-32) mmol/L Anion Gap (6-13) BUN (6-20) mg/dL Creatinine (0.6-1.2) mg/dL Estimated GFR (MDRD) (>89) Glucose (70-100) mg/dL Lactic Acid 1.0 (0.5-2.2) mmol/L Calcium (8.5-10.3) mg/dL Phosphorus (2.5-4.6) mg/dL Magnesium (1.7-2.8) mg/dL Total Bilirubin (0.2-1.0) mg/dL AST (10-42) IU/L ALT (10-60) IU/L Alkaline Phosphatase (42-121) IU/L Total Creatine Kinase (22-269) IU/L Troponin I High Sens 197.8 H* (2.3-19.7) ng/L B-Natriuretic Peptide (5-100) pg/mL Total Protein (6.7-8.2) g/dL Albumin (3.2-5.5) g/dL Globulin (2.1-4.2) g/dL Albumin/Globulin Ratio (1.0-2.2) Lipase (22-51) U/L Urine Color YELLOW Urine Clarity CLEAR (CLEAR) Urine pH 5.5 (5.0-7.5) PH Ur Specific [place] >=1.030 H (1.002-1.030) Urine Protein 30 H (NEGATIVE) mg/dL Urine Glucose (UA) NEGATIVE (NEGATIVE) mg/dL Urine Ketones 40 H (NEGATIVE) mg/dL Urine Occult Blood NEGATIVE (NEGATIVE) Urine Nitrite NEGATIVE (NEGATIVE) Urine Bilirubin NEGATIVE (NEGATIVE) Urine Urobilinogen 0.2 (NORMAL) (NORMAL) E.U./dL Ur Leukocyte Esterase NEGATIVE (NEGATIVE) Urine RBC None Seen (0-5) /HPF Urine WBC 0-3 (0-3) /HPF Ur Squamous Epith Cells NONE SEEN (<= Few) Urine Bacteria Rare (None Seen) /HPF Urine Mucus Few Strands Ur Microscopic Review INDICATED Urine Culture Comments NOT INDICATED Urine Opiates Screen NEGATIVE (NEGATIVE) Ur Oxycodone Screen NEGATIVE (NEGATIVE) Urine Methadone Screen NEGATIVE (NEGATIVE) Ur Propoxyphene Screen NEGATIVE (NEGATIVE) Ur Barbiturates Screen NEGATIVE (NEGATIVE) Ur Tricyclics Screen NEGATIVE (NEGATIVE) Ur Phencyclidine Scrn NEGATIVE (NEGATIVE) Ur Amphetamine Screen NEGATIVE (NEGATIVE) U Methamphetamines Scrn NEGATIVE (NEGATIVE) U Benzodiazepines Scrn NEGATIVE (NEGATIVE) Urine Cocaine Screen NEGATIVE (NEGATIVE) U Cannabinoids Screen NEGATIVE (NEGATIVE) Ethyl Alcohol mg/dL Influenza A (Rapid) (Negative) Influenza B (Rapid) (Negative) 02/13/20 02/13/20 02/13/20 Range/Units 20:22 20:22 20:22 WBC (4.8-10.8) x10^3/uL RBC (4.70-6.10) 10^6/uL Hgb (14.0-18.0) g/dL Hct (42.0-52.0) % MCV (80.0-94.0) fL MCH (27.0-31.0) pg MCHC (32.0-36.0) g/dL RDW (12.0-15.0) % Plt Count (130-450) 10^3/uL MPV (7.4-11.4) fL Neut # (Auto) (1.5-6.6) 10^3/uL Lymph # (Auto) (1.5-3.5) 10^3/uL [place] # (Auto) (0.0-1.0) 10^3/uL Eos # (Auto) (0.0-0.7) 10^3/uL Baso # (Auto) (0.0-0.1) 10^3/uL Absolute Nucleated RBC x10^3/uL Nucleated RBC % /100WBC PT (9.9-12.6) secs INR (0.8-1.2) APTT (24.9-33.3) secs Sodium 135 (135-145) mmol/L Potassium 4.1 (3.5-5.0) mmol/L Chloride 101 (101-111) mmol/L Carbon Dioxide 23 (21-32) mmol/L Anion Gap 11.0 (6-13) BUN 15 (6-20) mg/dL Creatinine 1.0 (0.6-1.2) mg/dL Estimated GFR (MDRD) 79 L (>89) Glucose 142 H (70-100) mg/dL Lactic Acid (0.5-2.2) mmol/L Calcium 9.1 (8.5-10.3) mg/dL Phosphorus (2.5-4.6) mg/dL Magnesium 1.9 (1.7-2.8) mg/dL Total Bilirubin 0.6 (0.2-1.0) mg/dL AST 14 (10-42) IU/L ALT 13 (10-60) IU/L Alkaline Phosphatase 65 (42-121) IU/L Total Creatine Kinase 99 (22-269) IU/L Troponin I High Sens 64.7 H* (2.3-19.7) ng/L B-Natriuretic Peptide 11 (5-100) pg/mL Total Protein 7.3 (6.7-8.2) g/dL Albumin 3.9 (3.2-5.5) g/dL Globulin 3.4 (2.1-4.2) g/dL Albumin/Globulin Ratio 1.1 (1.0-2.2) Lipase 26 (22-51) U/L Urine Color Urine Clarity (CLEAR) Urine pH (5.0-7.5) PH Ur Specific [place] (1.002-1.030) Urine Protein (NEGATIVE) mg/dL Urine Glucose (UA) (NEGATIVE) mg/dL Urine Ketones (NEGATIVE) mg/dL Urine Occult Blood (NEGATIVE) Urine Nitrite (NEGATIVE) Urine Bilirubin (NEGATIVE) Urine Urobilinogen (NORMAL) E.U./dL Ur Leukocyte Esterase (NEGATIVE) Urine RBC (0-5) /HPF Urine WBC (0-3) /HPF Ur Squamous Epith Cells (<= Few) Urine Bacteria (None Seen) /HPF Urine Mucus Ur Microscopic Review Urine Culture Comments Urine Opiates Screen (NEGATIVE) Ur Oxycodone Screen (NEGATIVE) Urine Methadone Screen (NEGATIVE) Ur Propoxyphene Screen (NEGATIVE) Ur Barbiturates Screen (NEGATIVE) Ur Tricyclics Screen (NEGATIVE) Ur Phencyclidine Scrn (NEGATIVE) Ur Amphetamine Screen (NEGATIVE) U Methamphetamines Scrn (NEGATIVE) U Benzodiazepines Scrn (NEGATIVE) Urine Cocaine Screen (NEGATIVE) U Cannabinoids Screen (NEGATIVE) Ethyl Alcohol < 5.0 mg/dL Influenza A (Rapid) (Negative) Influenza B (Rapid) (Negative) 02/13/20 02/13/20 02/13/20 Range/Units 20:22 20:22 20:11 WBC 10.9 H (4.8-10.8) x10^3/uL RBC 4.95 (4.70-6.10) 10^6/uL Hgb 14.9 (14.0-18.0) g/dL Hct 44.6 (42.0-52.0) % MCV 90.1 (80.0-94.0) fL MCH 30.1 (27.0-31.0) pg MCHC 33.4 (32.0-36.0) g/dL RDW 13.2 (12.0-15.0) % Plt Count 258 (130-450) 10^3/uL MPV 8.7 (7.4-11.4) fL Neut # (Auto) 8.7 H (1.5-6.6) 10^3/uL Lymph # (Auto) 0.8 L (1.5-3.5) 10^3/uL [place] # (Auto) 0.8 (0.0-1.0) 10^3/uL Eos # (Auto) 0.5 (0.0-0.7) 10^3/uL Baso # (Auto) 0.1 (0.0-0.1) 10^3/uL Absolute Nucleated RBC 0.00 x10^3/uL Nucleated RBC % 0.0 /100WBC PT 14.4 H (9.9-12.6) secs INR 1.3 H (0.8-1.2) APTT 27.1 (24.9-33.3) secs Sodium (135-145) mmol/L Potassium (3.5-5.0) mmol/L Chloride (101-111) mmol/L Carbon Dioxide (21-32) mmol/L Anion Gap (6-13) BUN (6-20) mg/dL Creatinine (0.6-1.2) mg/dL Estimated GFR (MDRD) (>89) Glucose (70-100) mg/dL Lactic Acid (0.5-2.2) mmol/L Calcium (8.5-10.3) mg/dL Phosphorus (2.5-4.6) mg/dL Magnesium (1.7-2.8) mg/dL Total Bilirubin (0.2-1.0) mg/dL AST (10-42) IU/L ALT (10-60) IU/L Alkaline Phosphatase (42-121) IU/L Total Creatine Kinase (22-269) IU/L Troponin I High Sens (2.3-19.7) ng/L B-Natriuretic Peptide (5-100) pg/mL Total Protein (6.7-8.2) g/dL Albumin (3.2-5.5) g/dL Globulin (2.1-4.2) g/dL Albumin/Globulin Ratio (1.0-2.2) Lipase (22-51) U/L Urine Color Urine Clarity (CLEAR) Urine pH (5.0-7.5) PH Ur Specific [place] (1.002-1.030) Urine Protein (NEGATIVE) mg/dL Urine Glucose (UA) (NEGATIVE) mg/dL Urine Ketones (NEGATIVE) mg/dL Urine Occult Blood (NEGATIVE) Urine Nitrite (NEGATIVE) Urine Bilirubin (NEGATIVE) Urine Urobilinogen (NORMAL) E.U./dL Ur Leukocyte Esterase (NEGATIVE) Urine RBC (0-5) /HPF Urine WBC (0-3) /HPF Ur Squamous Epith Cells (<= Few) Urine Bacteria (None Seen) /HPF Urine Mucus Ur Microscopic Review Urine Culture Comments Urine Opiates Screen (NEGATIVE) Ur Oxycodone Screen (NEGATIVE) Urine Methadone Screen (NEGATIVE) Ur Propoxyphene Screen (NEGATIVE) Ur Barbiturates Screen (NEGATIVE) Ur Tricyclics Screen (NEGATIVE) Ur Phencyclidine Scrn (NEGATIVE) Ur Amphetamine Screen (NEGATIVE) U Methamphetamines Scrn (NEGATIVE) U Benzodiazepines Scrn (NEGATIVE) Urine Cocaine Screen (NEGATIVE) U Cannabinoids Screen (NEGATIVE) Ethyl Alcohol mg/dL Influenza A (Rapid) Negative (Negative) Influenza B (Rapid) Negative (Negative) - Diagnostic Imaging Diagnostic Imaging Results: positive: Final report reviewed (Personally reviewed imaging. Agree with rad report) ABX Reporting Has patient been on IV antibiotics over the past 48 hours?: Yes Assessment/Plan - Problem List (1) Acute respiratory failure with hypoxia Impression: Still on 6L NC. CTA chest negative for PE but showed bilateral infiltrates concerning for pneumonia as well as concurrent bronchitis. Pt with history of asthma and ARIANE. Low suspicion for fluid overload, normal BNP Plan: -IV ceftriaxone, azithromycin -IV Solumedrol -Scheduled and PRN bronchodilators -Obtain sputum culture and check RSV Ag -F/U COVID 19 -Wean oxygen as able -PRN Tessalon, add Robitussin AC (2) Asthma exacerbation Impression: Plan: As above Qualifiers: Asthma severity: mild Asthma persistence: intermittent Qualified Code(s): J45.21 - Mild intermittent asthma with (acute) exacerbation (3) Bronchopneumonia Impression: Plan: As above (4) Elevated troponin Impression: Suspect this is likely demand ischemia given his hypoxic respiratory failure and asthma exacerbation. EKG without acute ischemic changes. Downtrending, no chest pain Plan: -Continue to monitor him on telemetry -Will consider TTE, not available over the weekend (5) ARIANE on CPAP Impression: Plan: -Continue CPAP QHS
[2020-02-14 18:09] LABS: RESPIRATORY SYNCYTIAL VIRUS Negative (Negative)
[2020-02-15] MEDS: BENZONATATE 100 MG CAPSULE PO PRN ×3 (05:12→20:41)
[2020-02-15 05:49] LABS: BASOPHILS % (AUTO) 0.2 %; HGB - HEMOGLOBIN 14.1 g/dL (14.0-18.0); LYMPHOCYTES # (AUTO) 0.8 10^3/uL (1.5-3.5); LYMPHOCYTES % (AUTO) 5.5 %; MEAN CORPUSCULAR HEMOGLOBIN 29.1 pg (27.0-31.0); MEAN CORPUSCULAR HGB CONC 32.4 g/dL (32.0-36.0); MEAN CORPUSCULAR VOLUME 89.7 fL (80.0-94.0); MEAN PLATELET VOLUME 8.9 fL (7.4-11.4); MONOCYTES # (AUTO) 0.6 10^3/uL (0.0-1.0); MONOCYTES % (AUTO) 4.4 %; NEUTROPHILS # (AUTO) 12.6 10^3/uL (1.5-6.6); NEUTROPHILS % (AUTO) 89.1 %; PLT - PLATELET COUNT 288 10^3/uL (130-450); RED BLOOD COUNT 4.85 10^6/uL (4.70-6.10); RED CELL DISTRIBUTION WIDTH 13.7 % (12.0-15.0); WHITE BLOOD COUNT 14.2 x10^3/uL (4.8-10.8)
[2020-02-15 05:59] LABS: CREATININE 0.9 mg/dL (0.6-1.2); MAGNESIUM 2.4 mg/dL (1.7-2.8); PHOSPHORUS 4.5 mg/dL (2.5-4.6)
[2020-02-15] MEDS: IPRATROPIUM/ALBUTEROL 3 ML NEB INH SCH ×6 (07:30→22:59)
[2020-02-15] MEDS: BUDESONIDE 0.5 MG/2 ML NEB INH SCH ×2 (07:30→18:18)
[2020-02-15] MEDS: SODIUM CHLORIDE FLUSH 0.9% 10 ML SYRINGE IVP SCH ×2 (08:08→17:17)
[2020-02-15] MEDS: cefTRIAXone 1 GM in SODIUM CHLORIDE 0.9% MINIBAG 100 ML IV SCH (08:08)
[2020-02-15] MEDS: AZITHROMYCIN 250 MG TABLET PO SCH (08:09)
[2020-02-15] MEDS: methylPREDNISolone SUCCINATE 40 MG/ML VIAL IVP SCH (08:09)
[2020-02-15] MEDS: ENOXAPARIN 40 MG/0.4 ML SYRINGE SUBQ SCH (08:09)
[2020-02-15] MEDS ORDERED: guaiFENesin/DEXTROMETHORPHAN 10 ML UDC PO PRN (11:32)
--- NOTE | 2020-02-15 15:20 | PROVIDER PROGRESS NOTE ---
Subjective - Prog Note Date Prog Note Date: 02/15/20 Prog Note Time: 15:14 - Subjective Subjective: Pt reports improved SOB and cough. Cough easily brought on by ambulating short distances in his room. Describes cough as mainly dry. Does not feel that Gene tussin AC as helpful for cough compared to Tessalon. Denies N/V, abd pain, or diarrhea. Currently on 3L NC, improved from 6L NC yesterday Current Medications - Current Medications Current Medications: Acetaminophen (Tylenol) 650 mg PO Q4HR PRN PRN Reason: Pain 1 to 4 Last Admin: 02/14/20 21:10 Dose: 650 mg Albuterol () 2.5 mg INH Q2HR PRN PRN Reason: Wheezing Albuterol/Ipratropium (Duoneb) 3 ml INH Q4H [facility] Last Admin: 02/15/20 14:49 Dose: 3 ml Azithromycin (Zithromax) 250 mg PO DAILY [facility] Last Admin: 02/15/20 08:09 Dose: 250 mg Benzonatate (Tessalon) 100 mg PO Q6H PRN PRN Reason: Cough Last Admin: 02/15/20 12:19 Dose: 100 mg Budesonide (Pulmicort) 0.5 mg INH RTBID [facility] Last Admin: 02/15/20 07:30 Dose: 0.5 mg Enoxaparin Sodium (Lovenox) 40 mg SUBQ DAILY [facility] Last Admin: 02/15/20 08:09 Dose: 40 mg Guaifenesin (Robitussin Dm) 10 ml PO Q6HR PRN PRN Reason: Cough Ceftriaxone Sodium 1 gm/ (Sodium Chloride) 100 mls @ 200 mls/hr IV DAILY [facility] Last Infusion: 02/15/20 09:20 Dose: Infused Methylprednisolone (Solu-Medrol (40mg Vial)) 40 mg IVP BID [facility] Last Admin: 02/15/20 08:09 Dose: 40 mg Ondansetron HCl (Zofran Inj) 4 mg IVP Q6HR PRN PRN Reason: Nausea / Vomiting Sodium Chloride (Normal Saline Flush 0.9%) 10 ml IVP PRN PRN PRN Reason: NEEDED PER PROVIDER ORDERS Sodium Chloride (Normal Saline Flush 0.9%) 10 ml IVP 0100,0900,1700 [facility] Last Admin: 02/15/20 08:08 Dose: 10 ml Objective - Vital Signs/Intake & Output Vital Signs: Vital Signs x48h Temp Pulse Pulse Resp BP Pulse Ox 02/15/20 14:53 80 18 02/15/20 13:00 36.7 C 94 20 122/76 93 02/15/20 11:06 86 18 02/15/20 08:14 36.6 C 78 22 121/68 93 02/15/20 07:32 90 18 Intake & Output: Intake & Output 02/12/20 02/13/20 02/14/20 02/15/20 23:59 23:59 23:59 23:59 Intake Total 1450 2019 940 Output Total 200 Balance 1250 2019 940 - Objective General Appearance: positive: No acute distress, Alert Eyes Bilateral: positive: No scleral icterus Neck: positive: No JVD Respiratory: positive: No respiratory distress, Breath sounds nml, Other (Mild tachypnea, adequate patient effort. No wheezing auscultated today, much improved from yesterday) Cardiovascular: positive: Regular rate & rhythm, No murmur Abdomen: positive: Non-tender, No organomegaly, No distention Skin: positive: Color nml, No rash, Warm, Dry Extremities: positive: No pedal edema Neurologic/Psychiatric: positive: Oriented x3, Mood/affect nml - Lab Results Fish Bones: 02/15/20 05:30 02/15/20 05:30 Other Labs: Lab Results x24hrs 02/15/20 02/15/20 02/14/20 Range/Units 05:30 05:30 17:15 WBC 14.2 H (4.8-10.8) x10^3/uL RBC 4.85 (4.70-6.10) 10^6/uL Hgb 14.1 (14.0-18.0) g/dL Hct 43.5 (42.0-52.0) % MCV 89.7 (80.0-94.0) fL MCH 29.1 (27.0-31.0) pg MCHC 32.4 (32.0-36.0) g/dL RDW 13.7 (12.0-15.0) % Plt Count 288 (130-450) 10^3/uL MPV 8.9 (7.4-11.4) fL Neut # (Auto) 12.6 H (1.5-6.6) 10^3/uL Lymph # (Auto) 0.8 L (1.5-3.5) 10^3/uL [place] # (Auto) 0.6 (0.0-1.0) 10^3/uL Eos # (Auto) 0.0 (0.0-0.7) 10^3/uL Baso # (Auto) 0.0 (0.0-0.1) 10^3/uL Absolute Nucleated RBC 0.00 x10^3/uL Nucleated RBC % 0.0 /100WBC Sodium 139 (135-145) mmol/L Potassium 4.3 (3.5-5.0) mmol/L Chloride 105 (101-111) mmol/L Carbon Dioxide 23 (21-32) mmol/L Anion Gap 11.0 (6-13) BUN 22 H (6-20) mg/dL Creatinine 0.9 (0.6-1.2) mg/dL Estimated GFR (MDRD) 89 (>89) Glucose 156 H (70-100) mg/dL Calcium 9.0 (8.5-10.3) mg/dL Phosphorus 4.5 (2.5-4.6) mg/dL Magnesium 2.4 (1.7-2.8) mg/dL RSV Rapid Negative (Negative) - Diagnostic Imaging Diagnostic Imaging Results: positive: Final report reviewed (Imaging personally reviewed) Assessment/Plan - Problem List (1) Acute respiratory failure with hypoxia Impression: Improved from 6 to 3L NC. CTA chest negative for PE but showed bilateral infil trates concerning for pneumonia as well as concurrent bronchitis. COVID-19 must be considered due to his symptoms and lymphopenia, as well as negative rapid influenza and RSV Ag. Pt with history of asthma, history of tobacco abuse, and ARIANE. Low suspicion for fluid overload, normal BNP 11 and no crackles on exam. Plan: -IV ceftriaxone, azithromycin -Decrease IV Solumedrol 40mg BID to prednisone 40mg daily -Scheduled and PRN bronchodilators -Repeat CXR ordered for tomorrow AM -F/U COVID 19 -F/U sputum culture -Wean oxygen as able -PRN Tessalon. Change Robitussin AC to DM (2) Asthma exacerbation (3) Bronchopneumonia Plan: As above Qualifiers: Asthma severity: mild Asthma persistence: intermittent Qualified Code(s): J45.21 - Mild intermittent asthma with (acute) exacerbation (4) Elevated troponin Suspect this is likely demand ischemia given his hypoxic respiratory failure and asthma exacerbation. EKG without acute ischemic changes. Downtrending, no chest pain (5) Leukocytosis Impression: Suspect due to steroid effect Plan: -Continue to monitor CBC -F/U blood culture (6) ARIANE on CPAP Plan: Continue CPAP QHS (2) Asthma exacerbation Qualifiers: Asthma severity: mild Asthma persistence: intermittent Qualified Code(s): J45.21 - Mild intermittent asthma with (acute) exacerbation
[2020-02-16] MEDS: SODIUM CHLORIDE FLUSH 0.9% 10 ML SYRINGE IVP SCH ×2 (01:39→10:06)
[2020-02-16] MEDS: IPRATROPIUM/ALBUTEROL 3 ML NEB INH SCH ×2 (03:31→08:31)
[2020-02-16 07:01] LABS: BASOPHILS % (AUTO) 0.2 %; EOSINOPHILS # (AUTO) 0.1 10^3/uL (0.0-0.7); EOSINOPHILS % (AUTO) 0.6 %; HGB - HEMOGLOBIN 13.8 g/dL (14.0-18.0); LYMPHOCYTES # (AUTO) 1.6 10^3/uL (1.5-3.5); LYMPHOCYTES % (AUTO) 16.5 %; MEAN CORPUSCULAR HEMOGLOBIN 29.9 pg (27.0-31.0); MEAN CORPUSCULAR HGB CONC 32.9 g/dL (32.0-36.0); MEAN CORPUSCULAR VOLUME 90.9 fL (80.0-94.0); MEAN PLATELET VOLUME 8.6 fL (7.4-11.4); MONOCYTES # (AUTO) 0.8 10^3/uL (0.0-1.0); MONOCYTES % (AUTO) 8.5 %; NEUTROPHILS # (AUTO) 7.1 10^3/uL (1.5-6.6); NEUTROPHILS % (AUTO) 73.3 %; PLT - PLATELET COUNT 248 10^3/uL (130-450); RED BLOOD COUNT 4.62 10^6/uL (4.70-6.10); WHITE BLOOD COUNT 9.8 x10^3/uL (4.8-10.8)
[2020-02-16 07:33] LABS: CALCIUM 8.8 mg/dL (8.5-10.3); CREATININE 0.9 mg/dL (0.6-1.2); MAGNESIUM 2.2 mg/dL (1.7-2.8); PHOSPHORUS 3.7 mg/dL (2.5-4.6)
--- NOTE | 2020-02-16 07:40 | XRAY Report ---
Reason: Hypoxemia, cough, SOB. F/U infiltrates Procedure Date: 02/16/2020 Accession Number: [id number] / [id number] Procedure: XR - Chest 1 View X-Ray CPT Code: 93393 Final Report FULL RESULT: EXAM: CHEST RADIOGRAPHY EXAM DATE: 02/16/2020 06:35 AM. CLINICAL HISTORY: Hypoxemia, cough, SOB. F/U infiltrates. COMPARISON: CHEST 1 VIEW 02/13/2020 8:13 PM CHEST ANGIO 02/14/2020 1:41 AM. TECHNIQUE: 1 view. FINDINGS: Lungs/Pleura: There is subtle wispy airspace opacity at the left lung base, as before. Otherwise clear. No peribronchial cuffing or interstitial abnormality. No pneumothorax or gross pleural fluid. Mediastinum: Within exam limitations, the cardiomediastinal contour is normal. Other: None. IMPRESSION: There is subtle wispy airspace opacity at the left lung base, as before. [facility]
[2020-02-16] MEDS ORDERED: predniSONE 20 MG TABLET PO SCH (08:00)
[2020-02-16] MEDS: BUDESONIDE 0.5 MG/2 ML NEB INH SCH (08:31)
[2020-02-16] MEDS: AZITHROMYCIN 250 MG TABLET PO SCH (10:05)
[2020-02-16] MEDS: cefTRIAXone 1 GM in SODIUM CHLORIDE 0.9% MINIBAG 100 ML IV SCH (10:05)
[2020-02-16] MEDS: ENOXAPARIN 40 MG/0.4 ML SYRINGE SUBQ SCH (10:06)
[2020-02-16 12:03] VITALS: BP 136/88
--- NOTE | 2020-02-16 13:25 | Discharge Plan ---
Discharge Plan Problem Reviewed?: Yes Disposition: Home, Self Care Condition: Fair Prescriptions: Amoxicillin 875 mg PO BID #5 tablet Azithromycin [Zithromax] 250 mg PO DAILY #1 tablet Benzonatate [Tessalon] 100 mg PO Q6H PRN #30 capsule PRN Reason: Cough Prednisone 10 mg PO UD #1 tab.ds.pk Diet: Regular Shower Restrictions: No Driving Restrictions: No Instruction Topics: COVID-19 [facility] Department Statement, COVID-19 [facility] Concerns: You presented to the hospital as a known history of asthma and a smoker as well as obstructive sleep apnea who now has sudden onset of shortness of breath. You had a very low oxygen and were wheezing quite a bit when you came into the emergency room. You were treated as an asthma exacerbation with steroids, nebulizers, and antibiotics. We feel that you have an overlap of emphysema with asthma. We did a CAT scan to make sure you are not having blood clots to the lung, and you did have a left lower lobe lung pneumonia. You had reported fevers at home and you had been tested for Covid 19 on February 07. Those results are still pending. Your x-ray does not show any infiltrate of Covid 19. Plan of Treatment: 1. Complete antibiotic therapy 2. Resume your usual nebulizers and asthma medicine at home 3. You will be sent home on a tapered dose of steroids 4. Please see your primary care provider in the next 1 to 2 weeks. They will need to repeat your chest x-ray to make sure there is resolution of your pneumonia. 5. Must stop smoking. 6. Until your Covid 19 results are back, you must self quarantine within your home. Do not expose your and children. You must mask at all times. You must sleep in your own room. Make sure you wash her hands and clean everything you contact. Amna Grimm is the contact center specialist at this hospital for those results. Care Goals: To return to your baseline of minimal cough and shortness of breath. We would also ask you to please stop smoking completely. You are starting to develop early symptoms of chronic emphysema from your smoking. Assessment: Patient understands treatment, plan, and promises to follow through. No Smoking: If you smoke, Please STOP! Call for help. Follow-up with: Gruenwald,Vita S, [employer] [Primary Care Provider] -
--- NOTE | 2020-02-16 17:35 | DISCHARGE SUMMARY ---
"Discharge Summary Admit Date: 02/13/20 Discharge Date: 02/16/20 Discharging Provider: Joie Bhat MD Primary Care Provider: Vita Graff MD Code Status: Attempt Resuscitation Condition at Discharge: Fair Discharge Disposition: 01 Home, Self Care - DIAGNOSES Discharge Diagnoses with Status of Each Condition: 1. Acute respiratory failure with hypoxia 2. Asthma exacerbation 3. Bronchopneumonia, left lower lobe 4. Elevated troponin 5. Demand ischemia 6. Obstructive sleep apnea on CPAP - HPI History of Present Illness: 49-year-old male with a past medical history significant for asthma, obstructive sleep apnea on CPAP, allergic rhinitis, prior history of tobacco use who presents today complaining of shortness of breath. He states that he has been having fevers for the past 5 days and occasional shortness of breath. He states that today he noted he became severely dyspneic and he used his home albuterol without much improvement in his symptoms. He states it was relatively sudden in onset. He had some mild wheezing. He states his temperature at home has been up to 100.6 F over the past few days. He reports that he was tested for COVID- 19 this past Sunday. He reports no recent travel. 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 He denies any chest pain. He reports a slight productive cough. He does have a headache, sore throat, nasal congestion and runny nose. He reports no blurry vision and denies nausea or vomiting. He also reports no abdominal pain or diarrhea. He states he has never been hospitalized before and normally feels so short of breath, he sees his primary care physician and he improves with oral steroids. He states he normally uses his albuterol inhaler at most once a week. He does take his Advair on a daily basis. He is also compliant with CPAP for his obstructive sleep apnea. He states he never officially been told he has COPD and that he was diagnosed with asthma since his younger years. He no longer smokes after quitting about 5 years ago previously he stated he was smoking a pack a day on and off since his teens. He denies any prior history of DVT or PE. Reports no leg swelling or pain. Denies a family history of thromboembolisms. He states he currently feels better after receiving IV Solu- Medrol and DuoNeb treatments in the emergency department. In the emergency department, he was found to be afebrile with temperature of 37.5 C. He was tachycardic with a heart rate of 130. Blood pressure is elevated at 141/90. He was tachypneic in the low 20s and was saturating 87% on room air. This improved to 92% on 6 L of oxygen via nasal cannula. Labs reveal ed a white count of 10.9 with a left shift and decreased lymphocytes. His troponin was also elevated at 64.7. His BNP was normal. Influenza was negative. His chest x-ray was unremarkable. His EKG showed sinus tachycardia without any signs of ischemia. He was given ceftriaxone IV and azithromycin IV in the emergency department. He had received 125 mg of Solumedrol IV prior to his arrival to emergency department. He also received 3 DuoNeb treatments. Given his hypoxia and persistent dyspnea, medicine was consulted for admission. - Past Medical History Respiratory: reports: Asthma, Sleep apnea, CPAP use MRSA Hx?: No - Past Surgical History General: reports: Other (Bilaterla inguinal hernia repair) - CONSULTS | PROCEDURES Procedures: 1. Chest x-ray February 12, compared to chest x-ray May 12, 2019 showing no acute cardiopulmonary disease. Repeat chest x-ray February 15 showed subtle wispy airspace opacity left lung base. No change. 2. Chest/thorax CTA with no main or lobar pulmonary embolism. Segmental and subsegmental vessels difficult to assess. Small patchy consolidation within the left lower lobe. Multifocal scattered areas of centrilobular nodularity seen within the lungs bilaterally coupled with patchy areas of peribronchial consolidation within the lingula and right middle lobe. There are areas of bronchial and bronchiolar wall thickening as well as areas of bronchiolar plugging. Mild bilateral apical paraseptal emphysema. Increased number of small as well as mildly enlarged mediastinal and bilateral lymph nodes, presumed reactive. No pericardial effusion. [place] to be left lung pneumonia and a component of concurrent infectious bronchitis. 3. Blood cultures without growth after 2 days 4. Sputum culture with growth of normal jennifer to date, culture is still in progress. 5. EKG was sinus tachycardia, early transition on R wave progression. No acute ST T wave changes. 6. Troponin high-sensitivity 64.7, 197.8, 181. - HOSPITAL COURSE Hospital Course: He was placed in the hospital and treated with as ceftriaxone and azithromycin. Also received IV Solu-Medrol, PRN bronchodilators. Covid 19 swab sent and pending at the time of discharge. He peaked of his requirement on 6 L of oxygen. His troponins were followed because of the high level and came down on their own. Unfortunately we have no cardiac support on the weekends and we do not have echo or stress test available. He was continued on his CPAP for his obstructive sleep apnea. Within 24 hours he was improving with his cough and shortness of breath. Cough was easily brought on by ambulating short distances in his room. Cough is dry, nonproductive. He wanted Tessalon as opposed to Robitussin-AC. By the day of discharge he went from 6 L oxygen to 3 L oxygen and was on room air. Cough was mild. He was ambulating in his room and eating well. He was 93% on room air. He was anxious to go home since he was feeling better and eating with less cough and acceptable sob. As such I will be discharging him on 1 more dose of azithromycin and 2-1/2 more days of amoxicillin. He will also be discharged on a tapering prednisone dose pack. Discharge exam showed a temperature of 36.6, pulse 97, blood pressure 136/88. Respirations 20 and he was 93% on room air. A 6 foot tall 97.5 kg white male who looks stated age. Had mild nasal tone to voice, but no rhinorrhea or coryza. No respiratory distress. Neck was supple, no JVD. He was still get a little dyspneic just getting up to transition from laying, to sitting, to standing. But he quickly recovered if he sat still for 30 seconds or less. Occasional dry cough. But no crackles rhonchi. Very faint wheeze at the end of exhalation in the left midlung. Extremities are warm, no edema. He was a little bit hard of hearing. Greater than 30 minutes was spent coordinating discharge. I explained to him that his viral swab from February 07 is still pending at the time of discharge. He needs to self quarantine and he was given information on Covid 19. He needs to put a mask on at home. Do not expose his or children. Wash his hands. Stay separate from the until the swab gets back. [place] instructions were given to the patient. Because of the elevated troponin that we are attributing to demand ischemia, we are requesting that his primary care provider refer him for a stress test. - ALLERGIES Allergies/Adverse Reactions: Allergies Allergy/AdvReac Type Severity Reaction Status Date / Time No Known Drug Allergies Allergy Verified 02/13/20 19:57 - MEDICATIONS Home Medications: Ambulatory Orders Medication Instructions Recorded Confirmed Acetaminophen [Tylenol] 650 mg PO Q6H PRN 02/14/20 02/14/20 Albuterol Sulfate [Proair 2 puffs INH Q4H PRN 02/14/20 02/14/20 Respiclick] Fluticasone/Salmeterol [Advair 1 each INH BID 02/14/20 02/14/20 100-50 Diskus] Levocetirizine Dihydrochloride 5 mg PO DAILY 02/14/20 02/14/20 [Xyzal] Montelukast [Singulair] 10 mg PO QPM 02/14/20 02/14/20 Amoxicillin 875 mg PO BID #5 tablet 02/16/20 Azithromycin [Zithromax] 250 mg PO DAILY #1 tablet 02/16/20 Benzonatate [Tessalon] 100 mg PO Q6H PRN #30 capsule 02/16/20 Prednisone 10 mg PO UD #1 tab.ds.pk 02/16/20 - LABS Result Diagrams: 02/16/20 06:50 02/16/20 06:50"
== END 2020-02-16 15:00 | disposition home or self-care (01) | DRG 189 ==
LOC: EDUNIT# → ED 19:43 → MS2 21:29
PROVIDERS: ADMIT Internal Medicine; ATTEND Specialist
DX: J96.01 Acute respiratory failure with hypoxia (principal); J18.0 Bronchopneumonia, unspecified organism; J45.21 Mild intermittent asthma with (acute) exacerbation; I24.8 Other forms of acute ischemic heart disease; J43.9 Emphysema, unspecified; G47.33 Obstructive sleep apnea (adult) (pediatric); F17.210 Nicotine dependence, cigarettes, uncomplicated; R79.89 Other specified abnormal findings of blood chemistry; Z79.51 Long term (current) use of inhaled steroids
CPT/HCPCS: 36415; 71045; 71275; 80048; 80053; 80306; 80320; 81001; 82550; 83605; 83690; 83735; 83880; 84100; 84484; 85025; 85610; 85730; 87040; 87070; 87205; 87275; 87276; 87280; 93005; 94640; 96361; 96365; 96375; 99285; 99291; A9270; J1650; J7512; J7626; Q9967; 81003; 87086

== ENCOUNTER → 2020-09-30 | Outpatient (CLI) | payer OTHER ==
[2020-09-30 12:05] LABS: ALBUMIN 4.2 g/dL (3.2-5.5); ALBUMIN/GLOBULIN RATIO 1.4 (1.0-2.2); ALKALINE PHOSPHATASE 78 IU/L (42-121); ALT ALANINE AMINOTRANSFERASE 20 IU/L (10-60); AST ASPARTATE AMINOTRANSFERASE 17 IU/L (10-42); BILIRUBIN,TOTAL 0.9 mg/dL (0.2-1.0); BUN - BLOOD UREA NITROGEN 18 mg/dL (6-20); CALCIUM 9.7 mg/dL (8.5-10.3); CARBON DIOXIDE - CO2 24 mmol/L (21-32); CHLORIDE 103 mmol/L (101-111); CHOL/HDL RATIO 5.9 (<5.0); CHOLESTEROL 199 mg/dL; CREATININE 1.2 mg/dL (0.6-1.2); GLUCOSE 109 mg/dL (70-100); HDL CHOLESTEROL 34 mg/dL; LDL CHOLESTEROL,CALCULATED 144 mg/dL; LDL/HDL RATIO 4.2 (<3.6); SODIUM 140 mmol/L (135-145); TOTAL PROTEIN 7.2 g/dL (6.7-8.2); VLDL CHOLESTEROL 21 mg/dL
[2020-09-30 12:09] LABS: BASOPHILS # (AUTO) 0.1 10^3/uL (0.0-0.1); BASOPHILS % (AUTO) 1.3 %; EOSINOPHILS # (AUTO) 0.5 10^3/uL (0.0-0.7); EOSINOPHILS % (AUTO) 10.7 %; HGB - HEMOGLOBIN 15.8 g/dL (14.0-18.0); LYMPHOCYTES # (AUTO) 1.2 10^3/uL (1.5-3.5); LYMPHOCYTES % (AUTO) 25.4 %; MEAN CORPUSCULAR HEMOGLOBIN 29.9 pg (27.0-31.0); MEAN CORPUSCULAR HGB CONC 32.8 g/dL (32.0-36.0); MEAN CORPUSCULAR VOLUME 90.9 fL (80.0-94.0); MEAN PLATELET VOLUME 9.3 fL (7.4-11.4); MONOCYTES # (AUTO) 0.5 10^3/uL (0.0-1.0); MONOCYTES % (AUTO) 10.9 %; NEUTROPHILS # (AUTO) 2.5 10^3/uL (1.5-6.6); NEUTROPHILS % (AUTO) 51.3 %; PLT - PLATELET COUNT 255 10^3/uL (130-450); RED BLOOD COUNT 5.29 10^6/uL (4.70-6.10); RED CELL DISTRIBUTION WIDTH 13.6 % (12.0-15.0); WHITE BLOOD COUNT 4.8 x10^3/uL (4.8-10.8)
== END ==
LOC: LAB.WCP 08:00
PROVIDERS: ATTEND Nurse Practitioner Family
DX: Z00.00 Encounter for general adult medical examination without abnormal findings (principal)
CPT/HCPCS: 36415; 80053; 80061; 83721; 84443; 85025